=== PATIENT | female | born 1930 | race Caucasian/White ===

== ENCOUNTER 2017-05-13 18:52 | Inpatient (IN) | payer MEDICARE, MEDICAID ==
--- NOTE | 2017-05-13 20:21 | CT ---
CT BRAIN NONCONTRAST: HISTORY: 86-year-old female with altered mental status. FINDINGS: There is no midline shift or any other mass effect. There is no evidence of acute intracranial hemor rhage, large cortical infarct, obstructive hydrocephalus, or extraaxial fluid collection. The calvar ium is intact. There is diffuse parenchymal volume loss. There are low attenuation areas in the whi te matter. These are nonspecific, but in a patient of this age, they are probably chronic ischemic w huyen matter changes due to microvascular atherosclerosis. IMPRESSION: 1) No acute intracranial findings. 2) Involutional changes and severe chronic ischemic white matter changes. mika POS: K[facility]IN
--- NOTE | 2017-05-13 20:40 | RAD ---
RADIOGRAPH CHEST 1 VIEW: HISTORY: 86-year-old female with decreased level of consciousness. FINDINGS: There are no air space densities, pulmonary edema, pneumothorax, or cardiomegaly. The lateral costop hrenic angles are sharp. Atherosclerosis of the thoracic aorta. IMPRESSION: No acute cardiopulmonary findings. Atherosclerosis of the thoracic aorta. mika POS: K[facility]IN
[2017-05-13 20:59] LABS: Hemoglobin 13.3 g/dL (12.0-16.0); Mean Corpuscular HGB CONC 30.4 g/dL (32.0-36.0); Mean Corpuscular Hemoglobin 29.3 pg (27.0-31.0); Mean Corpuscular Volume 96.3 fl (81.0-99.0); Mean Platelet Volume 9.9 fL (7.4-10.4); Platelet Count 249 thou/uL (130-400); RBC Distribution Width 16.6 % (11.5-14.5); Red Blood Cell (RBC) Count 4.56 mill/uL (4.20-5.40); White Blood Cell (WBC) Count 21.8 thou/uL (4.8-10.8)
[2017-05-13 21:12] LABS: Lymphocytes 2 % (21-51); MDiff Complete? YES; Monocytes 5 % (0-10); Neutrophil 93 % (42-75)
[2017-05-13 21:13] LABS: Bilirubin Large (Negative); Blood, Urine Negative (Negative); Clarity CLOUDY (Clear); Glucose, Urine (Dipstick) Negative (Negative); Leukocyte Trace (Negative); Nitrite Negative (Negative); Protein, Urine (Dipstick) 30 mg/dL (Neg-Trace); Specific Gravity, Urine 1.026 (1.002-1.036)
[2017-05-13 21:15] LABS: Bacteria/HPF None Seen HPF (None Seen); RBC/HPF 0-3 HPF (0-3)
[2017-05-13 21:16] LABS: Pathc Cast-AUWi Flag 17.34 (0-2.49)
[2017-05-13 21:22] LABS: ALT (SGPT) 54 U/L (8-55); AST (SGOT) 54 U/L (5-34); Alkaline Phosphatase 66 U/L (40-150); Anion Gap 17 mmol/L (10-20); BUN (Urea Nitrogen) 55 mg/dL (9.8-20.1); Bilirubin, Total 0.7 mg/dL (0.2-1.2); Calc. Creatinine Clearance 0 mL/min (70-130); Carbon Dioxide 23 mmol/L (23-31); Chloride 128 mmol/L (98-107); Estimated GFR-MDRD 23; Globulin 3.8 g/dL (2.4-3.5); Glucose 129 mg/dL (83-110); Potassium 4.6 mmol/L (3.5-5.1); Protein, Total 6.8 g/dL (6.0-8.3); Sodium 163 mmol/L (136-145)
[2017-05-13 21:24] LABS: Crystals/HPF 2+ AMORPH URATES HPF (Negative); Hyaline Casts/LPF 7-10 HYALINE CAST LPF (0-3 Hyaline); Yeast-All Forms None Seen HPF (None Seen)
[2017-05-13 21:30] LABS: Troponin I 0.092 ng/mL (< 0.028)
[2017-05-13 21:31] LABS: CKMB 8.6 ng/mL (0-6.6)
[2017-05-13] MEDS ORDERED: cefTRIAXone\\ROCEPHIN 2 GM in Sodium Chloride 0.9% 100 ML IVPB SCH (22:15)
[2017-05-14 00:40] LABS: Troponin I 0.103 ng/mL (< 0.028)
[2017-05-14] MEDS ORDERED: Sodium Chloride 0.9% 1,000 ML IV SCH (01:03)
[2017-05-14] MEDS ORDERED: Ondansetron HCl/PF 4 MG/2 ML Vial IVP PRN ×2 (01:03→08:35)
[2017-05-14] MEDS ORDERED: Acetaminophen 325 MG TAB PO PRN (01:03)
[2017-05-14] MEDS ORDERED: Ondansetron ODT 4 MG TAB SL PRN (01:03)
[2017-05-14 01:07] LABS: Lactic Acid 2.1 mmol/L (0.5-2.2)
[2017-05-14 03:38] LABS: Troponin I 0.111 ng/mL (< 0.028)
[2017-05-14] MEDS ORDERED: Ondansetron ODT 4 MG TAB PO PRN (08:35)
[2017-05-14] MEDS ORDERED: hydrALAZINE 20 MG/ML VIAL SLOW IVP PRN (08:35)
[2017-05-14] MEDS ORDERED: cloNIDine 0.1 MG TAB PO PRN (08:35)
[2017-05-14] MEDS ORDERED: Acetaminophen 500 MG TAB PO PRN (08:35)
[2017-05-14] MEDS ORDERED: Non-Formulary Item 1 EACH (Memantine Hcl [Namenda Xr] 28 MG) PO SCH (09:00)
[2017-05-14] MEDS ORDERED: FLU VACC TS2017-18 (>65YR) 0.5 ML SYRINGE IM ONE (09:00)
[2017-05-14] MEDS ORDERED: Vancomycin HCl 0.75 GM in Sodium Chloride 0.9% 250 ML 250 ML IVPB SCH (09:00)
[2017-05-14] MEDS ORDERED: Prevnar 13-Val Conj/PF 0.5 ML SYRINGE IM ONE (09:00)
[2017-05-14] MEDS: Donepezil HCl 10 MG TAB PO SCH (09:04)
[2017-05-14] MEDS: Levothyroxine Sodium 75 MCG TAB PO SCH (09:04)
[2017-05-14] MEDS: Famotidine 20 MG TAB PO SCH ×2 (09:04→20:01)
[2017-05-14] MEDS: Sodium Chloride 0.9% 1,000 ML IV SCH (09:04)
[2017-05-14] MEDS ORDERED: Vancomycin HCl 500 MG in Sodium Chloride 0.9% 100 ML IVPB SCH (10:00)
--- NOTE | 2017-05-14 10:39 | HP ---
DATE OF ADMISSION: 05/14/2017 PRIMARY CARE PHYSICIAN: Dr. Kristina Johnston. CHIEF COMPLAINT: Weakness, poor appetite, lethargy. HISTORY OF PRESENT ILLNESS: This is an 86-year-old female who presented to [facility] Emergency Department with approximately 1 week history of increased lethargy, weak ness, poor oral intake and nonverbal status. History is obtained after review of electronic medical record from the emergency room as well as discussions with the patient's daughter who is the patient' s primary care provider and medical power of privacy attorney. The patient apparently lives with her Patricia lopez who assist with her daily care who noted decreased activity level, decreased mary etite, minimally verbal and nonambulatory. The patient is normally ambulatory with use of a rolling walker and is able to feed herself and speak in short sentences with family members. The patient is incontinent of stool and uses an adult diaper. The patient was apparently treated recently for appro ximately 2 weeks with amoxicillin for suspected bronchitis and developed some diarrhea according to t he daughter. The patient denied any complaints of urinary symptoms or difficulty with urination. No other specific change to her medication regimen was mentioned by the daughter. The daughter denied any specific documented fever, unilateral weakness, recent fall, injury or trauma. The daughter juancarlos ed any recent new vaccinations or exposure history or recent travel. In the emergency room, the shayne hter states she attempted to assist her mother with dietary intake with the use of Ensure as well as encouraging increased oral intake of water. In the emergency room, the patient underwent general demi luation including chest imaging showing no acute infiltrates. Screening metabolic survey showed elev ated sodium level to 163 as well as elevated creatinine of 2.06 and lactic acidosis. The patient was also noted with a urinary tract infection and given Rocephin 2 grams x1 dose. The patient also rece ived intravenous fluids and was referred to the Hospitalist Service for admission. PAST MEDICAL HISTORY: 1. Dementia, likely Alzheimer's type. 2. Chronic kidney disease stage 2-3. 3. Hypothyroidism. 4. Dyslipidemia. 5. Osteoarthritis. 6. History of diverticulosis. 7. History of pancreatic cysts. PAST SURGICAL HISTORY: 1. Status post hernia repair. 2. Status post hysterectomy. 3. Status post cataract removal. 4. Status post colonoscopies. 5. Status post dialysis catheter placement with subsequent removal. CURRENT MEDICATIONS: 1. Lovastatin 10 mg 1 tab p.o. daily. 2. Raloxifene 60 mg 1 tab p.o. daily. 3. Levothyroxine 75 mcg 1 tab p.o. daily. 4. Amoxicillin completed 2-week course of antibiotics. 5. Donepezil 10 mg p.o. daily. 6. Namenda XR 28 mg p.o. daily. ALLERGIES: No known drug allergies. FAMILY HISTORY: Positive for coronary artery disease in multiple family members. SOCIAL HISTORY: Patient is . Resides with her daughter in [place], [place]. Ambulates with use of a rolling walker. Incontinent of stools and urine. No current alcohol, tobacco or illicit drug u se. Formerly used tobacco products. Medical power of privacy attorney is Patricia Kelley, patient's daugh ter. REVIEW OF SYSTEMS: Unobtainable as the patient is nonverbal with altered mentation. PHYSICAL EXAMINATION: VITAL SIGNS: On admission, blood pressure 136/76, pulse 101, respiratory rate 22, temperature 97.7 d egrees Fahrenheit, O2 saturation 96% on 2 liters per minute by nasal cannula. GENERAL APPEARANCE: This is an 86-year-old female, nonverbal, opens eyes to name, ill appe aring. HEENT: Pupils are equal, round, and reactive to light and accommodation. Extraocular muscles are in tact. No scleral icterus, no conjunctival injection. Nares patent. OP is clear. Oral mucosa dry. NECK: Supple, no cervical adenopathy, no thyromegaly, no carotid bruits, no JVD appreciated. Cervic al spine with full active and passive range of motion. No meningeal signs appreciated. Scalp is atr aumatic. CHEST: Lungs are clear to auscultation bilaterally. CARDIOVASCULAR: S1, S2, without noted murmur. ABDOMEN: Flat, soft, nontender, nondistended. Bowel sounds are positive in all four quadrants. The re is no hepatosplenomegaly, no abdominal bruits, no rebound or guarding appreciated. EXTREMITIES: Warm and dry with poor turgor. Pulses palpable distally at the dorsalis pedis, posteri or tibial, and popliteal arteries bilaterally. Capillary refill less than 2 seconds. NEUROLOGIC: Nonverbal. Does not follow commands. Opens eyes to name. Does not track with eyes on command. Moves extremities randomly. No unilateral or focal lateralizing signs. The patient not ob served ambulatory during this exam. PERTINENT LABORATORY AND X-RAY FINDINGS: Sodium 163, potassium 4.6, chloride 128, CO2 of 23, anion g ap 17, BUN 55, creatinine 2.06 with estimated GFR of 23, glucose 129, lactic acid level ranged betwee n 2.1-2.9, calcium 9.0, AST 54, ALT of 54, alkaline phosphatase 66, troponin I ranged between 0.092 t o 0.11. Albumin 3.0. [place] [address], hemoglobin 13, hematocrit 44, pl atelet count 249 with 93% neutrophilia. Urinalysis shows specific gravity 1.026, large bilirubin, tr jenifer leukocyte esterase with 11-20 wbc's per high powered field. Portable chest x-ray dated 8 showed no acute cardiopulmonary process. CT of the brain without contrast dated 05/13/2017 showed no acute intracranial process. Severe chronic ischemic white matter changes noted. EKG dated 2017 by my interpretation shows sinus tachycardia with heart rates in the low 100s. Normal R-wave pr ogression noted in the precordial leads. Left axis deviation. ST-T wave flattening in leads V4 thro ugh V6. ASSESSMENT AND PLAN: 1. Sepsis with acute organ dysfunction secondarily with acute organ dysfunction with acute kidney in jury secondary to likely urinary tract infection. The patient will be admitted to the telemetry unit . We will continue IV fluids with normal saline. Continue Rocephin 2 g IV q.24 hours with additiona l vancomycin 750 mg IV q.12 hours. Blood and urine cultures pending. We will continue general sepsis protocol and monitor clinical response. Initial serial lactate 2.9 down to 2.1, on repeat. 2. Acute kidney injury on chronic kidney disease stage 3. We will continue intravenous fluids as ou tlined previously. Avoid nephrotoxic agents and contrast media. Repeat creatinine and monitor trend . 3. Hypernatremia/hyperchloremia. Suspect secondarily to severe dehydration. We will continue IV fl uids as outlined previously. Continue serial sodium monitoring. 4. Severe dehydration. See above. Continue IV normal saline and encourage increased free water int danitza orally. 5. Elevated troponin I. Suspect demand ischemia in the context of current sepsis. Continue support arben management as outlined previously in #1. 6. Acute metabolic encephalopathy. Suspect secondarily to #1. Initial CT imaging of the brain unre markable. We will continue metabolic support with treatment as outlined previously. 7. Hypothyroidism. Continue levothyroxine 75 mcg p.o. daily. Check TSH level in the a.m. 8. Dementia, likely Alzheimer's type. We will continue supportive management. Baseline dementia co nfirmed by family members. 9. Prophylaxis. Sequential compression devices while in bed. Pepcid 20 mg p.o. b.i.d. Update infl uenza and pneumonia vaccinations. PT, OT evaluation in the a.m. 10. Code status is FULL. Surrogate medical decision maker is the patient's daughter who is medical power of privacy attorney, Patricia Kelley.
[2017-05-14] MEDS: cefTRIAXone\\ROCEPHIN 2 GM in Sodium Chloride 0.9% 100 ML IVPB SCH (20:25)
[2017-05-15 05:54] LABS: ALT (SGPT) 33 U/L (8-55); AST (SGOT) 26 U/L (5-34); Albumin 2.6 g/dL (3.4-4.8); Alkaline Phosphatase 52 U/L (40-150); Anion Gap 8 mmol/L (10-20); BUN (Urea Nitrogen) 32 mg/dL (9.8-20.1); Bilirubin, Total 0.4 mg/dL (0.2-1.2); Calc. Creatinine Clearance 28 mL/min (70-130); Calcium 8.4 mg/dL (7.8-10.44); Carbon Dioxide 27 mmol/L (23-31); Chloride 132 mmol/L (98-107); Estimated GFR-MDRD 57; Globulin 2.9 g/dL (2.4-3.5); Glucose 73 mg/dL (83-110); Potassium 3.2 mmol/L (3.5-5.1); Protein, Total 5.5 g/dL (6.0-8.3); Sodium 164 mmol/L (136-145)
[2017-05-15 05:58] LABS: Band 5 % (5-11); Eosinophils 1 % (0-10); Lymphocytes 10 % (21-51); MDiff Complete? YES; Mean Corpuscular HGB CONC 30.3 g/dL (32.0-36.0); Mean Corpuscular Hemoglobin 28.6 pg (27.0-31.0); Mean Corpuscular Volume 94.5 fl (81.0-99.0); Mean Platelet Volume 9.7 fL (7.4-10.4); Monocytes 6 % (0-10); Neutrophil 78 % (42-75); Platelet Count 190 thou/uL (130-400); RBC Distribution Width 16.4 % (11.5-14.5); Red Blood Cell (RBC) Count 3.84 mill/uL (4.20-5.40); White Blood Cell (WBC) Count 12.4 thou/uL (4.8-10.8)
[2017-05-15] MEDS ORDERED: Sodium Chloride 0.45% 1,000 ML IV SCH (06:45)
[2017-05-15] MEDS: POTASSIUM ACETATE IV SCH ×6 (09:10→09:55)
[2017-05-15] MEDS: WATER IV SCH ×6 (09:10→09:55)
[2017-05-15] MEDS: ADMIXTURE FEE IV SCH ×6 (09:10→09:55)
[2017-05-15] MEDS: DEXTROSE IV SCH ×6 (09:10→09:55)
[2017-05-15] MEDS: Famotidine 20 MG TAB PO SCH (10:27)
[2017-05-15] MEDS: Donepezil HCl 10 MG TAB PO SCH (10:27)
[2017-05-15] MEDS: Levothyroxine Sodium 75 MCG TAB PO SCH (10:28)
--- NOTE | 2017-05-15 12:04 | PDOC.PN ---
- Subjective Encounter Start Date: 05/15/17 Encounter Start Time: 12:00 Subjective: f/u for sepsis with acute organ dysfuntion including MONALISA and encephalopathy -: Tx with Vancomycin and Rocephin. Afebrile, remains lethargic. Receiving -: D5W with KCL IV. NPO recommended per speech therapy - Objective Resuscitation Status: Resuscitation Status FULL:Full Resuscitation MAR Reviewed: Yes Vital Signs & Weight: Vital Signs (12 hours) Temp Pulse Resp BP BP Pulse Ox 05/15/17 08:55 97.7 F 81 18 146/62 H 100 05/15/17 04:10 97.7 F 78 18 130/60 95 05/15/17 00:05 97.8 F 83 18 170/80 H 96 Weight Admit Weight 93 lb 4.8 oz Weight 89 lb 6.4 oz I&O: 05/14/17 05/15/17 05/16/17 06:59 06:59 06:59 Intake Total 274 1810 Balance 274 1810 Result Diagrams: 05/15/17 05:22 05/15/17 05:22 Additional Labs: Microbiology 05/13/17 21:57 Venous blood - Right Arm Blood Culture - Preliminary Specimen has been received and culture in progress. No Growth to date. 05/13/17 20:40 Venous blood - Right Arm Blood Culture - Preliminary Specimen has been received and culture in progress. No Growth to date. Laboratory Tests 05/13/17 05/13/17 05/15/17 20:43 20:43 05:22 WBC 21.8 H Hgb 13.3 Neutrophils % (Manual) 93 H Sodium 163 H* Potassium 4.6 Chloride 128 H* 132 H* Creatinine 2.06 H AST 54 H 26 ALT 54 33 TSH 3rd Generation 05/15/17 05/15/17 05:22 05:22 WBC Hgb Neutrophils % (Manual) 78 H Sodium Potassium Chloride Creatinine AST ALT TSH 3rd Generation 2.3240 EKG Reviewed by me: Yes (Tele - SR in 70's) Phys Exam - Physical Examination opens eyes to name, nods to questions briefly, ill-appearing HEENT: oral pharynx no lesions Neck: no JVD, supple Respiratory: no wheezing, clear to auscultation bilateral Cardiovascular: RRR Gastrointestinal: soft, non-tender, no distention, positive bowel sounds Musculoskeletal: no edema, pulses present Alert, opens eyes to name, nods briefly, mumbles Neurological: moves all 4 limbs Deviation from normal: poor turgor Skin: cap refill <2 seconds Dx/Plan (1) Sepsis with acute organ dysfunction Code(s): A41.9 - SEPSIS, UNSPECIFIED ORGANISM; R65.20 - SEVERE SEPSIS WITHOUT SEPTIC SHOCK Status: Acute Comment: Suspected UTI source, continue Rocephin and Vancomycin, continue supportive mgmt, IVF's (2) MONALISA (acute kidney injury) Code(s): N17.9 - ACUTE KIDNEY FAILURE, UNSPECIFIED Status: Acute Comment: Improved with IVF's, avoid nephrotoxic meds and limit contrast exposure (3) Acute hypernatremia Code(s): E87.0 - HYPEROSMOLALITY AND HYPERNATREMIA Status: Acute Comment: Persistent, D5W with KCL IVF, serial Na+ monitoring (4) Encephalopathy, metabolic Code(s): G93.41 - METABOLIC ENCEPHALOPATHY Status: Acute Comment: Persistent likely due to hypernatremia and sepsis, supportive mgmt, serial assessments, CT brain negative (5) Elevated troponin I level Code(s): R74.8 - ABNORMAL LEVELS OF OTHER SERUM ENZYMES Status: Acute Comment: Likely due to demand ischemia in context of sepsis, no ACS (6) CKD (chronic kidney disease) stage 3, GFR 30-59 ml/min Status: Chronic (7) Dehydration Code(s): E86.0 - DEHYDRATION Status: Acute Comment: Improved, continue IVF' s and monitor response (8) Dementia Code(s): F03.90 - UNSPECIFIED DEMENTIA WITHOUT BEHAVIORAL DISTURBANCE Status: Suspected Comment: Supportive mgmt as outlined above, reassess mental status after acute infectious process resolved - Plan plan discussed w/ family, continue antibiotics, PT/OT, social services assistant, speech therapy, DVT proph w/SCDs Continue aggressive supportive measures -: D5W with KCL IV at 75ml/h -: Continue Rocephin and Vancomycin pending final Ucx results -: NPO per [facility], reassess with mental status improved -: Updated family of clinical progress * Check BMP now * AM lab: CMP, CBC
[2017-05-15 13:47] LABS: Anion Gap 14 mmol/L (10-20); BUN (Urea Nitrogen) 29 mg/dL (9.8-20.1); Calc. Creatinine Clearance 29 mL/min (70-130); Calcium 8.2 mg/dL (7.8-10.44); Carbon Dioxide 23 mmol/L (23-31); Chloride 128 mmol/L (98-107); Estimated GFR-MDRD 59; Glucose 80 mg/dL (83-110); Potassium 3.4 mmol/L (3.5-5.1); Sodium 162 mmol/L (136-145)
[2017-05-15] MEDS: Vancomycin HCl 500 MG in Sodium Chloride 0.9% 100 ML IVPB SCH (14:18)
[2017-05-15] MEDS: Famotidine 40 MG/4 ML VIAL SLOW IVP SCH (21:51)
[2017-05-15] MEDS: cefTRIAXone\\ROCEPHIN 2 GM in Sodium Chloride 0.9% 100 ML IVPB SCH (21:57)
[2017-05-16] MEDS: WATER IV SCH ×9 (00:32→17:48)
[2017-05-16] MEDS: DEXTROSE IV SCH ×9 (00:32→17:48)
[2017-05-16] MEDS: POTASSIUM ACETATE IV SCH ×9 (00:32→17:48)
[2017-05-16] MEDS: ADMIXTURE FEE IV SCH ×9 (00:32→17:48)
[2017-05-16] MEDS: Sodium Chloride 0.9% 1,000 ML IV SCH (01:27)
[2017-05-16 06:16] LABS: ALT (SGPT) 27 U/L (8-55); AST (SGOT) 24 U/L (5-34); Albumin 2.7 g/dL (3.4-4.8); Alkaline Phosphatase 57 U/L (40-150); Anion Gap 11 mmol/L (10-20); BUN (Urea Nitrogen) 17 mg/dL (9.8-20.1); Bilirubin, Total 0.5 mg/dL (0.2-1.2); Calc. Creatinine Clearance 32 mL/min (70-130); Calcium 8.2 mg/dL (7.8-10.44); Carbon Dioxide 27 mmol/L (23-31); Chloride 120 mmol/L (98-107); Estimated GFR-MDRD 67; Globulin 3.1 g/dL (2.4-3.5); Glucose 117 mg/dL (83-110); Potassium 3.6 mmol/L (3.5-5.1); Protein, Total 5.8 g/dL (6.0-8.3); Sodium 154 mmol/L (136-145)
[2017-05-16 06:21] LABS: Band 3 % (5-11); Eosinophils 2 % (0-10); Hemoglobin 11.7 g/dL (12.0-16.0); Lymphocytes 15 % (21-51); MDiff Complete? YES; Mean Corpuscular HGB CONC 30.7 g/dL (32.0-36.0); Mean Corpuscular Hemoglobin 29.2 pg (27.0-31.0); Mean Corpuscular Volume 95.3 fl (81.0-99.0); Mean Platelet Volume 9.9 fL (7.4-10.4); Monocytes 5 % (0-10); Neutrophil 75 % (42-75); PLT Morphology Comment Appears Adequate; Platelet Count 195 thou/uL (130-400); RBC Distribution Width 16.3 % (11.5-14.5); Red Blood Cell (RBC) Count 3.99 mill/uL (4.20-5.40); White Blood Cell (WBC) Count 9.6 thou/uL (4.8-10.8)
[2017-05-16] MEDS: Levothyroxine Sodium 75 MCG TAB PO SCH (09:27)
[2017-05-16] MEDS: Donepezil HCl 10 MG TAB PO SCH (09:27)
[2017-05-16] MEDS: Famotidine 40 MG/4 ML VIAL SLOW IVP SCH (09:53)
[2017-05-16 12:08] LABS: Vancomycin, Trough 7.9 ug/mL
[2017-05-16] MEDS: Vancomycin HCl 500 MG in Sodium Chloride 0.9% 100 ML IVPB SCH (13:03)
[2017-05-16] MEDS: Vancomycin HCl 750 MG in Sodium Chloride 0.9% 250 ML 250 ML IVPB SCH (13:12)
--- NOTE | 2017-05-16 14:21 | PDOC.PN ---
- Subjective Encounter Start Date: 05/16/17 Encounter Start Time: 14:15 Subjective: f/u for sepsis suspected UTI source on Rocephin and Vancomycin. -: Overall more alert. Continues on IVF's and Na+ level improving. -: No new complaints. - Objective Resuscitation Status: Resuscitation Status FULL:Full Resuscitation MAR Reviewed: Yes Vital Signs & Weight: Vital Signs (12 hours) Temp Pulse Pulse Resp BP BP Pulse Ox 05/16/17 11:42 97.1 F L 75 19 172/79 H 100 05/16/17 11:01 78 131/74 05/16/17 08:25 97.5 F L 79 22 H 98 05/16/17 07:56 97.5 F L 79 22 H 142/80 H 98 05/16/17 03:51 98 F 76 16 169/77 H 97 Weight Admit Weight 93 lb 4.8 oz Weight 88 lb 6.4 oz I&O: 05/15/17 05/16/17 05/17/17 06:59 06:59 06:59 Intake Total 1810 1304 Balance 1810 1304 Result Diagrams: 05/16/17 05:52 05/16/17 05:52 Additional Labs: Microbiology 05/13/17 21:57 Venous blood - Right Arm Blood Culture - Preliminary Specimen has been received and culture in progress. No Growth to date. 05/13/17 21:57 Venous blood - Right Arm Blood Culture - Preliminary NO GROWTH AT 48 HOURS 05/13/17 20:40 Venous blood - Right Arm Blood Culture - Preliminary Specimen has been received and culture in progress. No Growth to date. 05/13/17 20:40 Venous blood - Right Arm Blood Culture - Preliminary NO GROWTH AT 48 HOURS Laboratory Tests 05/13/17 05/13/17 05/15/17 20:43 20:43 05:22 WBC 21.8 H Hgb 13.3 Neutrophils % (Manual) 93 H Sodium 163 H* Potassium 4.6 Chloride 128 H* 132 H* Creatinine 2.06 H AST 54 H 26 ALT 54 33 TSH 3rd Generation Vancomycin Trough 05/15/17 05/15/17 05/15/17 05:22 05:22 13:07 WBC 12.4 H Hgb 11.0 L Neutrophils % (Manual) 78 H Sodium 162 H* Potassium 3.4 L Chloride 128 H* Creatinine AST ALT TSH 3rd Generation 2.3240 Vancomycin Trough 05/16/17 05/16/17 05:52 11:42 WBC Hgb Neutrophils % (Manual) 75 Sodium Potassium Chloride Creatinine AST ALT TSH 3rd Generation Vancomycin Trough 7.9 EKG Reviewed by me: Yes (Tele - SR in 70's) Phys Exam - Physical Examination alert, tracks with eyes, non-verbal dry oral mucosa HEENT: PERRLA, oral pharynx no lesions Neck: no JVD, supple Respiratory: no wheezing, clear to auscultation bilateral Cardiovascular: RRR Gastrointestinal: soft, non-tender, no distention, positive bowel sounds Musculoskeletal: no edema, pulses present Neurological: normal sensation, moves all 4 limbs Deviation from normal: poor turgor Skin: cap refill <2 seconds Dx/Plan (1) Sepsis with acute organ dysfunction Code(s): A41.9 - SEPSIS, UNSPECIFIED ORGANISM; R65.20 - SEVERE SEPSIS WITHOUT SEPTIC SHOCK Status: Acute Comment: Suspected UTI source, Ucx not performed per micro, continue Rocephin and Vancomycin, continue supportive mgmt, IVF's, likely d/c Vancomycin in 24h (2) MONALISA (acute kidney injury) Code(s): N17.9 - ACUTE KIDNEY FAILURE, UNSPECIFIED Status: Acute Comment: Improved with IVF's, avoid nephrotoxic meds and limit contrast exposure (3) Acute hypernatremia Code(s): E87.0 - HYPEROSMOLALITY AND HYPERNATREMIA Status: Acute Comment: Improved, continue D5W with KCL IVF, serial Na+ monitoring (4) Encephalopathy, metabolic Code(s): G93.41 - METABOLIC ENCEPHALOPATHY Status: Acute Comment: Mild improvement, due to hypernatremia and sepsis, supportive mgmt, serial assessments, CT brain negative (5) Elevated troponin I level Code(s): R74.8 - ABNORMAL LEVELS OF OTHER SERUM ENZYMES Status: Acute Comment: Likely due to demand ischemia in context of sepsis, no ACS (6) CKD (chronic kidney disease) stage 3, GFR 30-59 ml/min Status: Chronic (7) Dehydration Code(s): E86.0 - DEHYDRATION Status: Acute Comment: Improved, continue IVF' s and monitor response (8) Dementia Code(s): F03.90 - UNSPECIFIED DEMENTIA WITHOUT BEHAVIORAL DISTURBANCE Status: Suspected Comment: Supportive mgmt as outlined above, reassess mental status after acute infectious process resolved - Plan plan discussed w/ family, continue antibiotics, PT/OT, high school social science teacher, speech therapy, DVT proph w/SCDs Stable currently -: Continue IVF D5W with KCL at 75ml/h -: Continue Rocephin -: Continue Vancomycin another 24h then d/c -: ST for dysphagia and safe swallowing evaluation * AM lab: BMP, CBC, Mg++, PO3 * CM for HH assistance coordination
[2017-05-16] MEDS: cefTRIAXone\\ROCEPHIN 2 GM in Sodium Chloride 0.9% 100 ML IVPB SCH (21:40)
[2017-05-17] MEDS: WATER IV SCH ×6 (05:18→21:38)
[2017-05-17] MEDS: DEXTROSE IV SCH ×6 (05:18→21:38)
[2017-05-17] MEDS: POTASSIUM ACETATE IV SCH ×6 (05:18→21:38)
[2017-05-17] MEDS: ADMIXTURE FEE IV SCH ×6 (05:18→21:38)
[2017-05-17 06:01] LABS: Anion Gap 9 mmol/L (10-20); BUN (Urea Nitrogen) 10 mg/dL (9.8-20.1); Calc. Creatinine Clearance 35 mL/min (70-130); Calcium 7.6 mg/dL (7.8-10.44); Carbon Dioxide 25 mmol/L (23-31); Chloride 113 mmol/L (98-107); Estimated GFR-MDRD 76; Glucose 100 mg/dL (83-110); Magnesium 1.7 mg/dL (1.6-2.6); Potassium 4.3 mmol/L (3.5-5.1); Sodium 143 mmol/L (136-145)
[2017-05-17 06:03] LABS: Band 2 % (5-11); Eosinophils 1 % (0-10); Hemoglobin 11.1 g/dL (12.0-16.0); Lymphocytes 29 % (21-51); MDiff Complete? YES; Mean Corpuscular HGB CONC 31.7 g/dL (32.0-36.0); Mean Corpuscular Hemoglobin 29.9 pg (27.0-31.0); Mean Corpuscular Volume 94.5 fl (81.0-99.0); Mean Platelet Volume 10.5 fL (7.4-10.4); Monocytes 6 % (0-10); Neutrophil 62 % (42-75); PLT Morphology Comment Appears Adequate; Platelet Count 164 thou/uL (130-400); RBC Distribution Width 16.4 % (11.5-14.5); Red Blood Cell (RBC) Count 3.71 mill/uL (4.20-5.40); White Blood Cell (WBC) Count 6.6 thou/uL (4.8-10.8)
[2017-05-17 06:10] LABS: Phosphorus 1.8 mg/dL (2.3-4.7)
[2017-05-17] MEDS: Levothyroxine Sodium 75 MCG TAB PO SCH (09:12)
[2017-05-17] MEDS: Donepezil HCl 10 MG TAB PO SCH (09:12)
[2017-05-17] MEDS: Famotidine 40 MG/4 ML VIAL SLOW IVP SCH (09:13)
[2017-05-17] MEDS: Vancomycin HCl 750 MG in Sodium Chloride 0.9% 250 ML 250 ML IVPB SCH (14:28)
--- NOTE | 2017-05-17 14:43 | PDOC.PN ---
- Subjective Encounter Start Date: 05/17/17 Encounter Start Time: 14:40 Subjective: f/u for sepsis due to UTI and no available Ucx. Also with encephalopathy -: and hypernatremia. Remains confused and lethargic and ST not recommending -: safe po intake currently. - Objective Resuscitation Status: Resuscitation Status FULL:Full Resuscitation MAR Reviewed: Yes Vital Signs & Weight: Vital Signs (12 hours) Temp Pulse Resp BP Pulse Ox 05/17/17 08:53 97.5 F L 70 20 158/96 H 98 05/17/17 08:00 97.5 F L 70 20 98 05/17/17 04:00 97.7 F 75 18 147/77 H 97 Weight Admit Weight 93 lb 4.8 oz Weight 89 lb 5 oz I&O: 05/16/17 05/17/17 05/18/17 06:59 06:59 06:59 Intake Total 1304 1745 Balance 1304 1745 Result Diagrams: 05/17/17 04:53 05/17/17 04:53 Additional Labs: Microbiology 05/13/17 21:57 Venous blood - Right Arm Blood Culture - Preliminary Specimen has been received and culture in progress. No Growth to date. 05/13/17 21:57 Venous blood - Right Arm Blood Culture - Preliminary NO GROWTH AT 48 HOURS 05/13/17 20:40 Venous blood - Right Arm Blood Culture - Preliminary Specimen has been received and culture in progress. No Growth to date. 05/13/17 20:40 Venous blood - Right Arm Blood Culture - Preliminary NO GROWTH AT 48 HOURS Laboratory Tests 05/13/17 05/13/17 05/15/17 20:43 20:43 05:22 WBC 21.8 H Hgb 13.3 Neutrophils % (Manual) 93 H Sodium 163 H* Potassium 4.6 Chloride 128 H* 132 H* Creatinine 2.06 H AST 54 H 26 ALT 54 33 TSH 3rd Generation Vancomycin Trough 05/15/17 05/15/17 05/15/17 05:22 05:22 13:07 WBC 12.4 H Hgb 11.0 L Neutrophils % (Manual) 78 H Sodium 162 H* Potassium 3.4 L Chloride 128 H* Creatinine AST ALT TSH 3rd Generation 2.3240 Vancomycin Trough 05/16/17 05/16/17 05:52 11:42 WBC Hgb Neutrophils % (Manual) 75 Sodium Potassium Chloride Creatinine AST ALT TSH 3rd Generation Vancomycin Trough 7.9 Radiology Reviewed by me: Yes Phys Exam - Physical Examination Constitutional: NAD alert, eyes open to name, tracks with eyes intermittently HEENT: PERRLA, oral pharynx no lesions Neck: no JVD, supple Respiratory: no wheezing, clear to auscultation bilateral Cardiovascular: RRR Gastrointestinal: soft, non-tender, no distention, positive bowel sounds generalized atrophy Musculoskeletal: no edema, pulses present aphasic, attempts to mumble words Neurological: moves all 4 limbs Skin: normal turgor, cap refill <2 seconds Dx/Plan (1) Sepsis with acute organ dysfunction Code(s): A41.9 - SEPSIS, UNSPECIFIED ORGANISM; R65.20 - SEVERE SEPSIS WITHOUT SEPTIC SHOCK Status: Acute Comment: Suspected UTI source, Ucx not performed per micro, continue Rocephin and d/c Vancomycin, continue supportive mgmt, IVF' s (2) MONALISA (acute kidney injury) Code(s): N17.9 - ACUTE KIDNEY FAILURE, UNSPECIFIED Status: Acute Comment: Improved with IVF's, avoid nephrotoxic meds and limit contrast exposure (3) Acute hypernatremia Code(s): E87.0 - HYPEROSMOLALITY AND HYPERNATREMIA Status: Acute Comment: Improved, continue D5W with KCL IVF, serial Na+ monitoring, appears to be resolving (4) Encephalopathy, metabolic Code(s): G93.41 - METABOLIC ENCEPHALOPATHY Status: Acute Comment: Mild improvement but persists, due to hypernatremia and sepsis, supportive mgmt, serial assessments, CT brain negative (5) Elevated troponin I level Code(s): R74.8 - ABNORMAL LEVELS OF OTHER SERUM ENZYMES Status: Acute Comment: Likely due to demand ischemia in context of sepsis, no ACS (6) CKD (chronic kidney disease) stage 3, GFR 30-59 ml/min Status: Chronic (7) Dehydration Code(s): E86.0 - DEHYDRATION Status: Acute Comment: Improved, continue IVF' s and monitor response (8) Severe protein-calorie malnutrition Code(s): E43 - UNSPECIFIED SEVERE PROTEIN-CALORIE MALNUTRITION Status: Chronic Comment: Start TF's today, monitor caloric intake, discussed with family who agree to trial of TF's via NGT (9) Dementia Code(s): F03.90 - UNSPECIFIED DEMENTIA WITHOUT BEHAVIORAL DISTURBANCE Status: Suspected Comment: Supportive mgmt as outlined above, reassess mental status after acute infectious process resolved (10) Diarrhea Code(s): R19.7 - DIARRHEA, UNSPECIFIED Status: Acute Comment: Likely abx associated, c. diff toxin pending, continue IVF's, Imodium prn - Plan plan discussed w/ family, continue antibiotics, PT/OT, social work administrator, speech therapy, DVT proph w/SCDs Stable currently -: Place NGT today and start TF's Jevity 1.2 with goal rate 65ml/h -: Continue Rocephin -: D/C Vancomycin -: AM lab: BMP, CBC, PO3 * .
--- NOTE | 2017-05-17 17:16 | RAD ---
ONE VIEW CHEST: 05/17/17 HISTORY: Evaluate NG tube placement. COMPARISON: None. FINDINGS: There is atherosclerosis of the aorta. Suboptimal evaluation of the lung parenchyma due to overpenetr ation. There is a normal cardiac silhouette. Nasogastric tube terminates in the left upper quadrant. No evidence of pneumoperitoneum on supine projection. IMPRESSION: Nasogastric tube in left upper quadrant. POS: [facility]
[2017-05-17] MEDS: cefTRIAXone\\ROCEPHIN 2 GM in Sodium Chloride 0.9% 100 ML IVPB SCH (21:39)
[2017-05-17] MEDS: Loperamide HCl 2 MG CAP PO PRN (22:43)
[2017-05-18 06:34] LABS: Anion Gap 10 mmol/L (10-20); BUN (Urea Nitrogen) 8 mg/dL (9.8-20.1); Calc. Creatinine Clearance 36 mL/min (70-130); Calcium 8.2 mg/dL (7.8-10.44); Carbon Dioxide 29 mmol/L (23-31); Chloride 105 mmol/L (98-107); Estimated GFR-MDRD 77; Glucose 119 mg/dL (83-110); Potassium 4.3 mmol/L (3.5-5.1); Sodium 140 mmol/L (136-145)
[2017-05-18 06:53] LABS: Band 3 % (5-11); Hemoglobin 12.9 g/dL (12.0-16.0); Lymphocytes 18 % (21-51); MDiff Complete? YES; Mean Corpuscular HGB CONC 31.3 g/dL (32.0-36.0); Mean Corpuscular Hemoglobin 29.2 pg (27.0-31.0); Mean Corpuscular Volume 93.2 fl (81.0-99.0); Mean Platelet Volume 10.7 fL (7.4-10.4); Monocytes 5 % (0-10); Neutrophil 73 % (42-75); PLT Morphology Comment Appears Adequate; Platelet Count 188 thou/uL (130-400); RBC Distribution Width 16.4 % (11.5-14.5); RBC Morphology Normal; Reactive Lymphocytes 1 % (0-10); Red Blood Cell (RBC) Count 4.43 mill/uL (4.20-5.40); White Blood Cell (WBC) Count 9.4 thou/uL (4.8-10.8)
[2017-05-18] MEDS: Donepezil HCl 10 MG TAB PO SCH (09:36)
[2017-05-18] MEDS: Levothyroxine Sodium 75 MCG TAB PO SCH (09:36)
[2017-05-18] MEDS: WATER IV SCH ×6 (09:37→18:23)
[2017-05-18] MEDS: POTASSIUM ACETATE IV SCH ×6 (09:37→18:23)
[2017-05-18] MEDS: DEXTROSE IV SCH ×6 (09:37→18:23)
[2017-05-18] MEDS: ADMIXTURE FEE IV SCH ×6 (09:37→18:23)
[2017-05-18] MEDS: Famotidine 40 MG/4 ML VIAL SLOW IVP SCH (09:38)
[2017-05-18] MEDS: Loperamide HCl 2 MG CAP PO PRN ×2 (10:56→20:04)
--- NOTE | 2017-05-18 16:26 | PDOC.PN ---
- Subjective Encounter Start Date: 05/18/17 Encounter Start Time: 16:24 Subjective: pt barely opens eyes w loud verbal & tactile stimuli -: does not communicate or follows commands - Objective Resuscitation Status: Resuscitation Status FULL:Full Resuscitation MAR Reviewed: Yes Vital Signs & Weight: Vital Signs (12 hours) Temp Pulse Resp BP Pulse Ox 05/18/17 15:25 96.8 F L 82 16 119/78 98 05/18/17 11:40 96.1 F L 76 16 147/67 H 99 05/18/17 08:00 98.0 F 82 20 137/95 H 100 Weight Admit Weight 93 lb 4.8 oz Weight 89 lb 7 oz I&O: 05/17/17 05/18/17 05/19/17 06:59 06:59 06:59 Intake Total 1745 1965 130 Balance 1745 1965 130 Result Diagrams: 05/18/17 05:31 05/18/17 05:31 Additional Labs: Microbiology 05/19/15 00:02 Venous blood - Right Arm Blood Culture - Final NO GROWTH IN 5 DAYS 05/17/17 12:59 Stool C. difficile GDH Antigen & Toxins - Final 05/17/17 02:45 Stool Campylobacter Antigen Assay - Final 05/17/17 02:45 Stool Shiga Toxin Test - Final 05/18/15 23:21 Venous blood - Right Arm Blood Culture - Final NO GROWTH IN 5 DAYS 05/18/15 23:12 Urine Straight Catheter Urine Culture - Final NO GROWTH AT 36 HOURS 05/17/17 02:45 Stool Stool Culture - Preliminary 05/13/17 21:57 Venous blood - Right Arm Blood Culture - Preliminary NO GROWTH AT 48 HOURS 05/13/17 20:40 Venous blood - Right Arm Blood Culture - Preliminary NO GROWTH AT 48 HOURS Laboratory Tests 05/13/17 05/13/17 05/15/17 20:43 20:43 05:22 WBC 21.8 H Sodium 163 H* 164 H* Creatinine 2.06 H 0.93 TSH 3rd Generation 05/15/17 05/15/17 05/15/17 05:22 05:22 13:07 WBC 12.4 H Sodium 162 H* Creatinine 0.90 TSH 3rd Generation 2.3240 05/16/17 05/16/17 05/17/17 05:52 05:52 04:53 WBC 9.6 Sodium 154 H 143 Creatinine 0.81 0.73 TSH 3rd Generation 05/17/17 05/18/17 05/18/17 04:53 05:31 05:31 WBC 6.6 9.4 Sodium 140 Creatinine 0.72 TSH 3rd Generation Phys Exam - Physical Examination sleepy,thin,cachectic,brusied HEENT: PERRLA, sclera anicteric, oral pharynx no lesions dry mucosa Neck: no nodes, no JVD, supple, full ROM Respiratory: no wheezing, no rales, no rhonchi, clear to auscultation bilateral Cardiovascular: RRR, no significant murmur Gastrointestinal: soft, non-tender, no distention, positive bowel sounds Musculoskeletal: no edema, pulses present Neurological: moves all 4 limbs Deviation from normal: obtunded almost Skin: no rash Dx/Plan (1) Encephalopathy, metabolic Code(s): G93.41 - METABOLIC ENCEPHALOPATHY Status: Acute Comment: Mild improvement but persists, due to hypernatremia and sepsis, supportive mgmt, serial assessments, CT brain negative (2) MONALISA (acute kidney injury) Code(s): N17.9 - ACUTE KIDNEY FAILURE, UNSPECIFIED Status: Acute Comment: Improved with IVF's, avoid nephrotoxic meds and limit contrast exposure (3) Sepsis with acute organ dysfunction Code(s): A41.9 - SEPSIS, UNSPECIFIED ORGANISM; R65.20 - SEVERE SEPSIS WITHOUT SEPTIC SHOCK Status: Acute Comment: Suspected UTI source, Ucx/Blood Cx negative so far. continue Rocephin and d/c Vancomycin, continue supportive mgmt , IVF's (4) Elevated troponin I level Code(s): R74.8 - ABNORMAL LEVELS OF OTHER SERUM ENZYMES Status: Acute Comment: Likely due to demand ischemia in context of sepsis, no ACS (5) Severe protein-calorie malnutrition Code(s): E43 - UNSPECIFIED SEVERE PROTEIN-CALORIE MALNUTRITION Status: Chronic Comment: Started TF's , monitor caloric intake, (6) Dehydration Code(s): E86.0 - DEHYDRATION Status: Acute Comment: Improved, continue IVF' s and monitor response (7) CKD (chronic kidney disease) stage 3, GFR 30-59 ml/min Status: Chronic (8) Dementia Code(s): F03.90 - UNSPECIFIED DEMENTIA WITHOUT BEHAVIORAL DISTURBANCE Status: Suspected Comment: Supportive mgmt as outlined above, reassess mental status after acute infectious process resolved (9) Acute hypernatremia Code(s): E87.0 - HYPEROSMOLALITY AND HYPERNATREMIA Status: Resolved Comment : Improved, continue D5W with KCL IVF, serial Na+ monitoring, appears to be resolving - Plan burch catheter, continue antibiotics, PT/OT, DVT proph w/SCDs cont empiric ABX.IVF.reduced rate as now on TF. -: no improvement. remains full code but prognosis seems poor -: ill consult PCT for gaols of care & code status -: am labs. supportive care/ -: electrolytes have improved. monitor * . Review of Systems - Review of Systems Other: unobtainable due to encephalopathy/dementia - Medications/Allergies Allergies/Adverse Reactions: Allergies Allergy/AdvReac Type Severity Reaction Status Date / Time No Known Allergies Allergy Verified 05/19/15 02:56 Medications: Current Medications Acetaminophen (Tylenol) 1,000 mg PO Q6H PRN PRN Reason: Headache/Fever or Mild Pain Clonidine (Catapres) 0.1 mg PO Q4H PRN PRN Reason: Systolic BP > 180 Donepezil HCl (Aricept) 10 mg PO DAILY [facility] Last Admin: 05/18/17 09:36 Dose: 10 mg Famotidine (Pepcid) 20 mg SLOW IVP 0900 [facility] Hydralazine HCl (Apresoline) 10 mg SLOW IVP Q4H PRN PRN Reason: Systolic BP > 180 Ceftriaxone Sodium 2 gm/ (Sodium Chloride) 100 mls @ 200 mls/hr IVPB Q24HR [facility] Last Admin: 05/17/17 21:39 Dose: 100 mls Potassium Acetate 40 meq/Miscellaneous Medication 1 each/ Dextrose/Water 1,020 mls @ 50 mls/hr IV .[id number] [facility] Levothyroxine Sodium (Synthroid) 75 mcg PO DAILY [facility] Last Admin: 05/18/17 09:36 Dose: 75 mcg Loperamide HCl (Imodium) 2 mg PO PRN PRN PRN Reason: Diarrhea/Loose Stools Last Admin: 05/18/17 10:56 Dose: 2 mg Memantine (Namenda) 5 mg PO BID [facility] Last Admin: 05/18/17 09:36 Dose: 5 mg Ondansetron HCl (Zofran Odt) 4 mg PO Q6H PRN PRN Reason: Nausea/Vomiting Ondansetron HCl (Zofran) 4 mg IVP Q6H PRN PRN Reason: Nausea/Vomiting Raloxifene HCl (Evista) 60 mg PO DAILY [facility] Last Admin: 05/18/17 09:36 Dose: 60 mg Sodium Chloride (Flush - Normal Saline) 10 ml IVF Q12HR [facility] Last Admin: 05/18/17 09:37 Dose: Not Given Sodium Chloride (Flush - Normal Saline) 10 ml IVF PRN PRN PRN Reason: Saline Flush
[2017-05-18] MEDS: cefTRIAXone\\ROCEPHIN 2 GM in Sodium Chloride 0.9% 100 ML IVPB SCH (20:04)
[2017-05-19] MEDS: DEXTROSE IV SCH ×3 (03:06)
[2017-05-19] MEDS: WATER IV SCH ×3 (03:06)
[2017-05-19] MEDS: POTASSIUM ACETATE IV SCH ×3 (03:06)
[2017-05-19] MEDS: ADMIXTURE FEE IV SCH ×3 (03:06)
[2017-05-19 06:15] LABS: #Eosinphils 0.1 thou/uL (0.0-0.7); #Neutrophils 5.7 thou/uL (1.40-6.50); %Basophils 0.1 % (0.0-1.0); %Eosinophils 1.5 % (0.0-10.0); %Lymphocytes 22.7 % (21.0-51.0); %Monocytes 11.6 % (0.0-10.0); %Neutrophils 64.1 % (42.0-75.0); Hemoglobin 12.1 g/dL (12.0-16.0); Mean Corpuscular Volume 93.9 fl (81.0-99.0); Mean Platelet Volume 10.4 fL (7.4-10.4); Platelet Count 190 thou/uL (130-400); RBC Distribution Width 16.6 % (11.5-14.5); Red Blood Cell (RBC) Count 4.16 mill/uL (4.20-5.40); White Blood Cell (WBC) Count 8.9 thou/uL (4.8-10.8)
[2017-05-19 06:26] LABS: Anion Gap 10 mmol/L (10-20); BUN (Urea Nitrogen) 12 mg/dL (9.8-20.1); Calc. Creatinine Clearance 33 mL/min (70-130); Calcium 7.9 mg/dL (7.8-10.44); Carbon Dioxide 31 mmol/L (23-31); Chloride 104 mmol/L (98-107); Estimated GFR-MDRD 69; Glucose 109 mg/dL (83-110); Potassium 4.9 mmol/L (3.5-5.1); Sodium 140 mmol/L (136-145)
[2017-05-19] MEDS: Levothyroxine Sodium 75 MCG TAB PO SCH (09:21)
[2017-05-19] MEDS: Donepezil HCl 10 MG TAB PO SCH (09:21)
[2017-05-19] MEDS: Famotidine/PF 20 mg/2ml Vial SLOW IVP SCH (09:22)
--- NOTE | 2017-05-19 14:24 | PDOC.PN ---
- Subjective Encounter Start Date: 05/19/17 Encounter Start Time: 14:22 Subjective: no chnages in clinical condition.aminata obtubded -: discussedw eldest daughter at bedside -: they want PEG & then take her home w HH - Objective Resuscitation Status: Resuscitation Status FULL:Full Resuscitation MAR Reviewed: Yes Vital Signs & Weight: Vital Signs (12 hours) Temp Pulse Resp BP Pulse Ox 05/19/17 12:00 97.5 F L 75 18 128/62 99 05/19/17 07:49 97.2 F L 89 19 100 05/19/17 07:43 97.2 F L 89 19 132/55 L 100 05/19/17 04:00 96.7 F L 84 18 124/60 98 Weight Admit Weight 93 lb 4.8 oz Weight 89 lb I&O: 05/18/17 05/19/17 05/20/17 06:59 06:59 06:59 Intake Total 1964 3070 130 Balance 1964 3070 130 Result Diagrams: 05/19/17 05:37 05/19/17 05:37 Additional Labs: Microbiology 05/19/15 00:02 Venous blood - Right Arm Blood Culture - Final NO GROWTH IN 5 DAYS 05/17/17 12:59 Stool C. difficile GDH Antigen & Toxins - Final 05/17/17 02:45 Stool Campylobacter Antigen Assay - Final 05/17/17 02:45 Stool Shiga Toxin Test - Final 05/18/15 23:21 Venous blood - Right Arm Blood Culture - Final NO GROWTH IN 5 DAYS 05/18/15 23:12 Urine Straight Catheter Urine Culture - Final NO GROWTH AT 36 HOURS 05/13/17 21:57 Venous blood - Right Arm Blood Culture - Final NO GROWTH IN 5 DAYS 05/13/17 20:40 Venous blood - Right Arm Blood Culture - Final NO GROWTH IN 5 DAYS 05/17/17 02:45 Stool Stool Culture - Preliminary Laboratory Tests 05/13/17 05/15/17 05/15/17 20:43 05:22 13:07 Sodium 163 H* 164 H* 162 H* 05/16/17 05/17/17 05/18/17 05:52 04:53 05:31 Sodium 154 H 143 140 05/19/17 05:37 Sodium 140 Phys Exam - Physical Examination Constitutional: NAD HEENT: PERRLA, moist MMs, sclera anicteric, oral pharynx no lesions Neck: no nodes, no JVD, supple, full ROM Respiratory: no wheezing, no rales, no rhonchi, clear to auscultation bilateral Cardiovascular: RRR, no significant murmur Gastrointestinal: soft, no distention, positive bowel sounds Musculoskeletal: no edema, pulses present opens eyes for loud verbal stimuli,not following commands Deviation from normal: encephalopathic Dx/Plan (1) Encephalopathy, metabolic Code(s): G93.41 - METABOLIC ENCEPHALOPATHY Status: Acute Comment: Mild improvement but persists, due to hypernatremia and sepsis, supportive mgmt, serial assessments, CT brain negative (2) MONALISA (acute kidney injury) Code(s): N17.9 - ACUTE KIDNEY FAILURE, UNSPECIFIED Status: Acute Comment: Improved with IVF's, avoid nephrotoxic meds and limit contrast exposure (3) Sepsis with acute organ dysfunction Code(s): A41.9 - SEPSIS, UNSPECIFIED ORGANISM; R65.20 - SEVERE SEPSIS WITHOUT SEPTIC SHOCK Status: Acute Comment: Suspected UTI source, Ucx/Blood Cx negative so far. continue Rocephin and d/c Vancomycin, continue supportive mgmt , IVF's (4) Elevated troponin I level Code(s): R74.8 - ABNORMAL LEVELS OF OTHER SERUM ENZYMES Status: Acute Comment: Likely due to demand ischemia in context of sepsis, no ACS (5) Severe protein-calorie malnutrition Code(s): E43 - UNSPECIFIED SEVERE PROTEIN-CALORIE MALNUTRITION Status: Chronic Comment: Started TF's , monitor caloric intake, (6) Dehydration Code(s): E86.0 - DEHYDRATION Status: Acute Comment: Improved, continue IVF' s and monitor response (7) CKD (chronic kidney disease) stage 3, GFR 30-59 ml/min Status: Chronic (8) Dementia Code(s): F03.90 - UNSPECIFIED DEMENTIA WITHOUT BEHAVIORAL DISTURBANCE Status: Suspected Comment: Supportive mgmt as outlined above, reassess mental status after acute infectious process resolved (9) Acute hypernatremia Code(s): E87.0 - HYPEROSMOLALITY AND HYPERNATREMIA Status: Resolved Comment : Improved, continue D5W with KCL IVF, serial Na+ monitoring, appears to be resolving - Plan plan discussed w/ family, PT/OT, case management social worker, out of bed/ambulate, DVT proph w/SCDs Pt anjum at end of life.all labs,Cx,VS WNL.no clear abnormality -: family wants PEG tube to keep up with feedings at home & for meds -: will consult GI. -: Pallaitive team to address Code status/goals of care -: jane valero DC home w HH once PEG done & tolerates TF * . Review of Systems - Review of Systems Other: unobtainable due to dementia/delirium - Medications/Allergies Allergies/Adverse Reactions: Allergies Allergy/AdvReac Type Severity Reaction Status Date / Time No Known Allergies Allergy Verified 05/19/15 02:56 Medications: Current Medications Acetaminophen (Tylenol) 1,000 mg PO Q6H PRN PRN Reason: Headache/Fever or Mild Pain Clonidine (Catapres) 0.1 mg PO Q4H PRN PRN Reason: Systolic BP > 180 Donepezil HCl (Aricept) 10 mg PO DAILY [facility] Last Admin: 05/19/17 09:21 Dose: 10 mg Famotidine (Pepcid) 20 mg SLOW IVP 0900 [facility] Last Admin: 05/19/17 09:22 Dose: 20 mg Hydralazine HCl (Apresoline) 10 mg SLOW IVP Q4H PRN PRN Reason: Systolic BP > 180 Ceftriaxone Sodium 2 gm/ (Sodium Chloride) 100 mls @ 200 mls/hr IVPB Q24HR [facility] Last Admin: 05/18/17 20:04 Dose: 100 mls Potassium Acetate 40 meq/Miscellaneous Medication 1 each/ Dextrose/Water 1,020 mls @ 50 mls/hr IV .[id number] [facility] Last Admin: 05/19/17 03:06 Dose: 1,020 mls Levothyroxine Sodium (Synthroid) 75 mcg PO DAILY [facility] Last Admin: 05/19/17 09:21 Dose: 75 mcg Loperamide HCl (Imodium) 2 mg PO PRN PRN PRN Reason: Diarrhea/Loose Stools Last Admin: 05/18/17 20:04 Dose: 2 mg Memantine (Namenda) 5 mg PO BID [facility] Last Admin: 05/19/17 09:21 Dose: 5 mg Ondansetron HCl (Zofran Odt) 4 mg PO Q6H PRN PRN Reason: Nausea/Vomiting Ondansetron HCl (Zofran) 4 mg IVP Q6H PRN PRN Reason: Nausea/Vomiting Raloxifene HCl (Evista) 60 mg PO DAILY [facility] Last Admin: 05/19/17 09:21 Dose: 60 mg Sodium Chloride (Flush - Normal Saline) 10 ml IVF Q12HR [facility] Last Admin: 05/19/17 09:22 Dose: Not Given Sodium Chloride (Flush - Normal Saline) 10 ml IVF PRN PRN PRN Reason: Saline Flush
[2017-05-19] MEDS: Loperamide HCl 2 MG CAP PO PRN ×2 (15:17→20:45)
--- NOTE | 2017-05-19 20:02 | CON ---
DATE OF CONSULTATION: 05/19/2017 REASON FOR CONSULTATION: Dysphagia and malnutrition. CONSULTING PHYSICIAN: Dr. Elba Lomeli. HISTORY OF PRESENT ILLNESS: The patient is an 86-year-old female with past medical history of advanced dementia of the Alzheimer's type, chronic kidney disease stage 3, hypothyroidism, hyperlipidemia, osteoarthritis, diverticulosis and pancreatic cysts, who initially presented with increased lethargy, weakness , and poor oral intake and worsening of her mental status. During the course of this hospitalization, she has exhibited decreased interaction both verbal and physically with family and nursing staff and has essentially become nonverbal. Speech Pathology evaluated the patient and who was unable to follow simple instructions making her at high risk for aspiration as well as malnutrition due to poor oral intake, at which point, GI was consulted for possible PEG tube placement. Currently, the patient is obtunded and unable to respond to verbal stimuli, but does respond to noxious stimuli. The remainder of the information was obtained by the patient's granddaughter, who was at bedside and who also states that she is the medical power of estate attorney. At this point, the patient's granddaughter states that approximately 3 weeks ago, she was alert, she was active and performing ADLs to inadequate degree with significant decline over this time. Now to the point where she is unable to care for herself with the family hoping to have the placement of a feeding tube and discharged to home health once performed. REVIEW OF SYSTEMS: Could not be obtained due to the patient's obtunded status. PAST MEDICAL HISTORY: As per HPI. PAST SURGICAL HISTORY: Hernia repair, hysterectomy, cataract removal, dialysis catheter placement and removal. FAMILY HISTORY: Coronary artery disease in multiple family members. Denies any GI malignancies. SOCIAL HISTORY: Denies any tobacco, alcohol or illicit drug use. OUTPATIENT MEDICATIONS: Reviewed. ALLERGIES: No known drug allergies. PHYSICAL EXAMINATION: VITAL SIGNS: Temperature of 97.9, pulse 84, blood pressure 114/60, respiratory rate 18, satting 100% on room air. GENERAL: The patient is lying comfortably in bed, in no distress. The patient is not alert or interactive with the interviewer with sensorium unable to be determined. NECK: Supple. No JVD noted. CARDIOVASCULAR: Regular rate and rhythm with no discernible murmurs, gallops or rubs. RESPIRATORY: Clear to auscultation bilaterally with no discernible wheezes or rales. ABDOMEN: Normoactive bowel sounds, soft, nontender, nondistended. EXTREMITIES: No cyanosis, clubbing or edema. LABORATORY DATA: CBC with white blood cell count of 8.9, hemoglobin 12.1, hematocrit 39, platelets 190. Chemistry with a sodium of 140, potassium 4.9, chloride 104, CO2 31, BUN 12, creatinine 0.79, glucose 109, AST 24, ALT 27, alkaline phosphatase 57, total bilirubin 0.5, albumin 2.7. Stool studies were negative for C. diff, but stool culture was positive for Pseudomonas species with further speciation and sensitivities pending. Blood culture was negative x2. IMAGING DATA: Abdominal x-ray obtained on 05/17/2017 showed no evidence of pneumoperitoneum on supine projection and nasogastric tube in the left upper quadrant in appropriate position. ASSESSMENT AND PLAN: The patient is an 86-year-old female with past medical history of advanced dementia of the Alzheimer's type, chronic kidney disease stage 3, hypothyroidism, hyperlipidemia, osteoarthritis, diverticulosis, pancreatic cyst, presenting with worsening mental status/obtundation and malnutrition. Malnutrition/dysphagia: The patient is presenting with fairly sudden decline over the last 3 weeks with her mental status. Originally with very active lifestyle now, she has now worsened to the point where she is unable to interact with the interviewer or family members. She is completely aphasic at the current point in time with no meaningful responses upon questioning. Speech Pathology evaluation noted the patient did not follow instructions or commands adequately to maintain good swallow and there is a high concern that the patient will be unable to maintain an adequate nutrition with solely oral intake. The benefits of PEG tube placement in advanced dementia patients are controversial with recent studies showing no significant improvement in functional status and adequate nutrition and does not decrease mortality associated with this particular condition as well. However, per the patient's medical power of estate attorney, the PEG tube placement would be in line with the patient's wishes, so we will proceed with PEG tube tomorrow. RECOMMENDATIONS: 1. Please make patient n.p.o. at midnight with discontinuation of tube feeds in preparation for EGD with PEG tube placement tomorrow morning. 2, Please hold morning dose of any anticoagulation in preparation for the procedure. 3. Antibiotics to be administered roughly 30 minutes prior to PEG tube placement tomorrow in the endoscopy suite. We will continue to follow. Please call with any questions. MTDD
[2017-05-19] MEDS: cefTRIAXone\\ROCEPHIN 2 GM in Sodium Chloride 0.9% 100 ML IVPB SCH (20:45)
[2017-05-20] MEDS ORDERED: CEFAZOLIN/Water 2 GM/20 ML SYRINGE SLOW IVP SCH (03:30)
[2017-05-20] MEDS: Levothyroxine Sodium 75 MCG TAB PO SCH (08:48)
[2017-05-20] MEDS: Donepezil HCl 10 MG TAB PO SCH (08:48)
[2017-05-20] MEDS ORDERED: CEFAZOLIN/Water 2 GM/20 ML SYRINGE ONE (09:36)
[2017-05-20] MEDS ORDERED: Diprivan 20 ML ONE (10:14)
[2017-05-20] MEDS ORDERED: Promethazine HCl 25 MG/ML VIAL IM PRN (11:01)
[2017-05-20] MEDS ORDERED: Ondansetron HCl/PF 4 MG/2 ML Vial IVP PRN (11:01)
[2017-05-20] MEDS ORDERED: Promethazine HCl 25 MG/ML VIAL SLOW IVP PRN (11:01)
--- NOTE | 2017-05-20 11:26 | OP ---
DATE OF PROCEDURE: 05/20/2017 PROCEDURE: Esophagogastroduodenoscopy with PEG tube placement. INDICATION FOR PROCEDURE: Dysphagia and malnutrition. DESCRIPTION OF PROCEDURE: After the risks and benefits of the procedure were explained to the patien t's medical power of compliance attorney/surrogate including risks of bleeding, infection, perforation, reaction s to anesthesia and/or pain, informed consent was obtained. The patient was then taken to the endosc opy suite where deep sedation via propofol and anesthesia support was administered. The standard gas troscope was then introduced into the mouth with intubation of the esophagus, stomach and proximal sm all intestine with the findings listed below. Then, using sterile technique, the PEG tube was placed using a push method with the description of that particular portion of the procedure below. The pat ient tolerated the procedure well with no immediate perioperative complications. Two grams of cefazo jose was administered approximately 5-10 minutes prior to the procedure as a part of antibiotic prophy laxis. FINDINGS: ESOPHAGUS: Normal appearing mucosa was seen in the proximal, mid and distal esophagus. There was no evidence of erosions, ulcerations, or mass lesions. STOMACH: Normal appearing mucosa was seen in the gastric cardia, fundus, body, antrum and incisura. There was no evidence of erosions, ulcerations, or mass lesions. SMALL BOWEL: Normal appearing mucosa was seen in both the duodenal bulb and second portion of the du odenum. A large duodenal diverticula was seen in the second portion of the duodenum with a large josé miguel unt of retained food. Otherwise, there were no erosions, ulcerations, or mass lesions seen during th is portion of the exam. DESCRIPTION OF PROCEDURE: Then, using sterile technique, the PEG tube portion of the procedure was p erformed using both transillumination and 1:1 compression. The site for PEG tube placement was confi rmed. There was approximately 2 cm away from the xiphoid process as well as the left ribs in the lef t upper abdominal quadrant. Using an infiltration needle, a small amount of 2% lidocaine was instill ed in a wheal formation. After this was actually completed, the needle was then placed perpendicular to the skin and advanced using back pressure into the stomach as the needle was withdrawn. Instilla tion of 2% lidocaine was administered along the tract made then using a small scalpel, a small incisi on in the skin was made at the site of instillation of local anesthesia. A 1 cm incision was made in a vertical orientation with only minimal amount of bleeding seen with this incision. Then, using an aspiration needle, the needle was then advanced into the stomach without difficulty. The needle was then removed from the catheter and a guidewire was then placed into the stomach and using a snare, t he guidewire was then brought back through the esophagus out through the mouth. A [employer] PEG tube was then attached to the guidewire and using a method, advanced into the stomach a nd out through the anterior gastric wall and abdominal wall at the incision site performed earlier. The tube was then affixed with the bumper and cut to length with an abdominal binder placed around th e patient to prevent inadvertent pulling or removal of the PEG tube. Repeat intubation of the esopha rosalba and stomach was then performed to confirm placement of the PEG tube with placement confirmed and able to rotate the PEG tube approximately 720 degrees successfully without problems. At that point, all equipment was removed and the procedure was terminated. IMPRESSION: 1. Normal upper endoscopy prior to PEG tube placement. 2. Successful placement of a [employer] PEG tube. RECOMMENDATIONS: 1. Follow with primary inpatient team. 2. We would follow standard PEG tube care and precautions being careful to avoid the placement of an y dressings between the external bumper and the skin that can create pressure to the anterior wall of the stomach and ulceration. 3. Please rotate the PEG tube to 720 degrees daily to prevent secretion formation and adherence of t he PEG tube to the abdominal wall. 4. Would refrain from any swimming or baths for the next 6-8 weeks while the tract matures. 5. If the PEG tube is prematurely removed prior to 6-8 weeks, would consult General Surgery and silvano acuna order a stat CT of the abdomen and pelvis as this is considered a gastric perforation and considere d as surgical emergency. 6. Would instill approximately 60 mL of water prior to and after any tube feeds to prevent the forma tion of tube feeds adhering to the lining of the PEG tube and premature malfunction. Would hold any tube feeds for approximately 6 hours after placement of this PEG tube and if no complications are not ed within that time, can start PEG tube per dietitian protocol. We will continue to follow. Please call with any questions.
--- NOTE | 2017-05-20 15:39 | PDOC.PN ---
- Subjective Encounter Start Date: 05/20/17 Encounter Start Time: 15:39 - Objective Resuscitation Status: Resuscitation Status FULL:Full Resuscitation MAR Reviewed: Yes Vital Signs & Weight: Vital Signs (12 hours) Temp Pulse Resp BP BP Pulse Ox 05/20/17 08:00 97.7 F 83 16 149/69 H 98 05/20/17 04:45 97.5 F L 83 16 121/58 L 98 Weight Admit Weight 93 lb 4.8 oz Weight 89 lb 9.6 oz I&O: 05/19/17 05/20/17 05/21/17 06:59 06:59 06:59 Intake Total 3070 2456 Balance 3070 2456 Result Diagrams: 05/19/17 05:37 05/19/17 05:37 Additional Labs: Microbiology 05/17/17 12:59 Stool C. difficile GDH Antigen & Toxins - Final 05/17/17 02:45 Stool Campylobacter Antigen Assay - Final 05/17/17 02:45 Stool Shiga Toxin Test - Final 05/13/17 21:57 Venous blood - Right Arm Blood Culture - Final NO GROWTH IN 5 DAYS 05/13/17 20:40 Venous blood - Right Arm Blood Culture - Final NO GROWTH IN 5 DAYS 05/17/17 02:45 Stool Stool Culture - Preliminary Dx/Plan (1) Encephalopathy, metabolic Code(s): G93.41 - METABOLIC ENCEPHALOPATHY Status: Acute Comment: Mild improvement but persists, due to hypernatremia and sepsis, supportive mgmt, serial assessments, CT brain negative (2) MONALISA (acute kidney injury) Code(s): N17.9 - ACUTE KIDNEY FAILURE, UNSPECIFIED Status: Acute Comment: Improved with IVF's, avoid nephrotoxic meds and limit contrast exposure (3) Sepsis with acute organ dysfunction Code(s): A41.9 - SEPSIS, UNSPECIFIED ORGANISM; R65.20 - SEVERE SEPSIS WITHOUT SEPTIC SHOCK Status: Acute Comment: Suspected UTI source, Ucx/Blood Cx negative so far. continue Rocephin and d/c Vancomycin, continue supportive mgmt , IVF's (4) Elevated troponin I level Code(s): R74.8 - ABNORMAL LEVELS OF OTHER SERUM ENZYMES Status: Acute Comment: Likely due to demand ischemia in context of sepsis, no ACS (5) Severe protein-calorie malnutrition Code(s): E43 - UNSPECIFIED SEVERE PROTEIN-CALORIE MALNUTRITION Status: Chronic Comment: Started TF's , monitor caloric intake, (6) Dehydration Code(s): E86.0 - DEHYDRATION Status: Acute Comment: Improved, continue IVF' s and monitor response (7) CKD (chronic kidney disease) stage 3, GFR 30-59 ml/min Status: Chronic (8) Dementia Code(s): F03.90 - UNSPECIFIED DEMENTIA WITHOUT BEHAVIORAL DISTURBANCE Status: Suspected Comment: Supportive mgmt as outlined above, reassess mental status after acute infectious process resolved (9) Acute hypernatremia Code(s): E87.0 - HYPEROSMOLALITY AND HYPERNATREMIA Status: Resolved Comment : Improved, continue D5W with KCL IVF, serial Na+ monitoring, appears to be resolving - Plan * .
[2017-05-20] MEDS ORDERED: PHENYLEPHRINE-NS 100 MCG/ML 10 ML SYRINGE ONE (15:42)
[2017-05-20] MEDS ORDERED: Propofol 200 MG/20 ML VIAL ONE (15:42)
[2017-05-20] MEDS: Lidocaine 5% Patch TD SCH (18:11)
[2017-05-20] MEDS: Famotidine/PF 20 mg/2ml Vial SLOW IVP SCH (18:17)
[2017-05-20] MEDS: WATER IV SCH ×6 (21:05→22:05)
[2017-05-20] MEDS: DEXTROSE IV SCH ×6 (21:05→22:05)
[2017-05-20] MEDS: POTASSIUM ACETATE IV SCH ×6 (21:05→22:05)
[2017-05-20] MEDS: ADMIXTURE FEE IV SCH ×6 (21:05→22:05)
[2017-05-20] MEDS: cefTRIAXone\\ROCEPHIN 2 GM in Sodium Chloride 0.9% 100 ML IVPB SCH (21:06)
[2017-05-21 05:28] LABS: #Eosinphils 0.1 thou/uL (0.0-0.7); #Lymphocytes 1.6 thou/uL (1.20-3.40); #Monocytes 1.6 thou/uL (0.11-0.59); #Neutrophils 13.2 thou/uL (1.40-6.50); %Basophils 0.2 % (0.0-1.0); %Eosinophils 0.5 % (0.0-10.0); %Lymphocytes 9.6 % (21.0-51.0); %Monocytes 9.6 % (0.0-10.0); %Neutrophils 80.1 % (42.0-75.0); Hemoglobin 12.2 g/dL (12.0-16.0); Mean Corpuscular HGB CONC 31.1 g/dL (32.0-36.0); Mean Corpuscular Hemoglobin 28.3 pg (27.0-31.0); Mean Platelet Volume 10.5 fL (7.4-10.4); Platelet Count 249 thou/uL (130-400); RBC Distribution Width 16.9 % (11.5-14.5); Red Blood Cell (RBC) Count 4.32 mill/uL (4.20-5.40); White Blood Cell (WBC) Count 16.5 thou/uL (4.8-10.8)
[2017-05-21 05:42] LABS: Anion Gap 15 mmol/L (10-20); BUN (Urea Nitrogen) 16 mg/dL (9.8-20.1); Calc. Creatinine Clearance 32 mL/min (70-130); Calcium 8.7 mg/dL (7.8-10.44); Carbon Dioxide 24 mmol/L (23-31); Chloride 103 mmol/L (98-107); Estimated GFR-MDRD 63; Glucose 84 mg/dL (83-110); Phosphorus 3.4 mg/dL (2.3-4.7); Potassium 5.6 mmol/L (3.5-5.1); Sodium 136 mmol/L (136-145)
[2017-05-21] MEDS ORDERED: Lidocaine Patch Removal 1 EACH TOP SCH (06:00)
[2017-05-21] MEDS: Famotidine/PF 20 mg/2ml Vial SLOW IVP SCH (12:17)
[2017-05-21] MEDS: Levothyroxine Sodium 75 MCG TAB PO SCH (12:18)
[2017-05-21] MEDS: Donepezil HCl 10 MG TAB PO SCH (12:18)
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
--- NOTE | 2017-05-21 19:44 | PRG ---
DATE OF SERVICE: 05/21/2017 REASON FOR CONSULTATION: Dysphagia and malnutrition. SUBJECTIVE: The patient underwent successful EGD with PEG tube placement yesterday, no acute events or problems overnight. Tube feeds were started this morning per tube feed protocol. OBJECTIVE: VITAL SIGNS: Temperature 98.6, pulse 95, blood pressure 110/54, respiratory rate 20 and satting 100% on room air. GENERAL: The patient is lying comfortably in bed in no acute distress. The patient is not alert nor interactive. ABDOMEN: Normoactive bowel sounds, soft, nontender and nondistended. PEG tube noted in the left upp er quadrant with no surrounding skin erythema or mucosal breakdown, no purulence. The external bumpe r was retracted from the skin with approximately 6 cm sewn on the skin. ASSESSMENT AND PLAN: The patient is an 86-year-old female with past medical history of advanced alin ntia of the Alzheimer's type, chronic kidney disease stage 3, hypothyroidism, hyperlipidemia, osteoar thritis, diverticulosis and pancreatic cyst, presenting with worsening mental status/obtundation and malnutrition. 1. Malnutrition. The patient presented with a fairly sudden decline in her mental status prior to a dmission, now being unable to adequately feed herself to maintain oral nutrition. She underwent succ essful Esophagogastroduodenoscopy with PEG placement on 05/20/2017 with the placement of a 20-[place] [employer] PEG tube. Currently, the PEG tube is in the proper position with no immediate sari operative complications. RECOMMENDATIONS: 1. Okay to start tube feeds today and advance as tolerated. 2. Please follow general PEG tube care instructions. We will sign off at this time. Please call wi th any questions.
[2017-05-21] MEDS: cefTRIAXone\\ROCEPHIN 2 GM in Sodium Chloride 0.9% 100 ML IVPB SCH (22:04)
[2017-05-21] MEDS: Loperamide HCl 2 MG CAP PO PRN (23:46)
[2017-05-22] MEDS: Lidocaine 5% Patch TD SCH ×2 (01:00→01:55)
[2017-05-22] MEDS: Donepezil HCl 10 MG TAB PO SCH (08:45)
[2017-05-22] MEDS: Levothyroxine Sodium 75 MCG TAB PO SCH (08:45)
[2017-05-22] MEDS: Famotidine/PF 20 mg/2ml Vial SLOW IVP SCH (08:46)
[2017-05-22 10:43] LABS: #Eosinphils 0.1 thou/uL (0.0-0.7); #Lymphocytes 1.3 thou/uL (1.20-3.40); #Monocytes 1.5 thou/uL (0.11-0.59); #Neutrophils 8.1 thou/uL (1.40-6.50); %Basophils 0.1 % (0.0-1.0); %Lymphocytes 11.6 % (21.0-51.0); %Monocytes 13.2 % (0.0-10.0); %Neutrophils 74.1 % (42.0-75.0); Hemoglobin 10.7 g/dL (12.0-16.0); Mean Corpuscular HGB CONC 31.4 g/dL (32.0-36.0); Mean Corpuscular Hemoglobin 29.8 pg (27.0-31.0); Mean Platelet Volume 10.2 fL (7.4-10.4); Platelet Count 240 thou/uL (130-400); RBC Distribution Width 16.8 % (11.5-14.5)
[2017-05-22 11:01] LABS: Anion Gap 11 mmol/L (10-20); BUN (Urea Nitrogen) 19 mg/dL (9.8-20.1); Calc. Creatinine Clearance 33 mL/min (70-130); Carbon Dioxide 25 mmol/L (23-31); Chloride 104 mmol/L (98-107); Estimated GFR-MDRD 65; Glucose 101 mg/dL (83-110); Phosphorus 3.4 mg/dL (2.3-4.7); Potassium 4.9 mmol/L (3.5-5.1); Sodium 135 mmol/L (136-145)
[2017-05-22] MEDS: Lidocaine Patch Removal 1 EACH TOP SCH (12:02)
[2017-05-22 14:05] VITALS: BMI 17.4
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
[2017-05-22] MEDS ORDERED: Simvastatin 5 MG TAB PO SCH (21:00)
[2017-05-22] MEDS: Famotidine 20 MG TAB PER TUBE SCH (21:35)
[2017-05-23] MEDS: Lidocaine 5% Patch TD SCH (00:41)
[2017-05-23] MEDS: Levothyroxine Sodium 75 MCG TAB PO SCH (08:52)
[2017-05-23] MEDS: Donepezil HCl 10 MG TAB PO SCH (08:52)
[2017-05-23] MEDS: Famotidine 20 MG TAB PER TUBE SCH (08:52)
[2017-05-23] MEDS: Lidocaine Patch Removal 1 EACH TOP SCH (11:51)
--- NOTE | 2017-05-23 12:02 | PDOC.PN ---
- Subjective Encounter Start Date: 05/23/17 Encounter Start Time: 12:00 - Objective Resuscitation Status: Resuscitation Status DNR:Do Not Resuscitate MAR Reviewed: Yes Vital Signs & Weight: Vital Signs (12 hours) Temp Pulse Resp BP BP Pulse Ox 05/23/17 08:00 97.9 F 77 20 115/51 L 92 L 05/23/17 04:30 97.8 F 77 18 106/62 94 L Weight Admit Weight 93 lb 4.8 oz Weight 95 lb 8 oz I&O: 05/22/17 05/23/17 05/24/17 06:59 06:59 06:59 Intake Total 2520 2103 Balance 2519 2103 Result Diagrams: 05/22/17 10:26 05/22/17 10:26 Phys Exam - Physical Examination HEENT: PERRLA Respiratory: no wheezing, no rales, no rhonchi, clear to auscultation bilateral Cardiovascular: RRR, no significant murmur, no rub Gastrointestinal: soft, non-tender, positive bowel sounds Musculoskeletal: no edema Dx/Plan (1) Dysphagia Code(s): R13.10 - DYSPHAGIA, UNSPECIFIED Status: Acute (2) Encephalopathy, metabolic Code(s): G93.41 - METABOLIC ENCEPHALOPATHY Status: Acute Comment: Mild improvement but persists, due to hypernatremia and sepsis, supportive mgmt, serial assessments, CT brain negative (3) Severe protein-calorie malnutrition Code(s): E43 - UNSPECIFIED SEVERE PROTEIN-CALORIE MALNUTRITION Status: Chronic Comment: Started TF's,PEG placed 05/20/17. , monitor caloric intake, (4) Acute hypernatremia Code(s): E87.0 - HYPEROSMOLALITY AND HYPERNATREMIA Status: Resolved Comment : Improved, continue D5W with KCL IVF, serial Na+ monitoring, appears to be resolving (5) Dementia Code(s): F03.90 - UNSPECIFIED DEMENTIA WITHOUT BEHAVIORAL DISTURBANCE Status: Suspected Comment: Supportive mgmt as outlined above, reassess mental status after acute infectious process resolved (6) COPD (chronic obstructive pulmonary disease) Status: Acute - Plan * Hypernatremia- resolved * Dysphagia- likely as a result of advanced dementia- she has had a PEG tube placed * COPD- probable resulting in hypoxemia * Stable for discharge home..
[2017-05-23 12:41] VITALS: BP 113/69; TEMP 98
--- NOTE | 2017-05-23 20:14 | DIS ---
DATE OF ADMISSION: 05/14/2017 DATE OF DISCHARGE: 05/23/2017 PRIMARY CARE PHYSICIAN: Dr. Maxwell Johnston. DISCHARGE DISPOSITION: Home. PRIMARY DISCHARGE DIAGNOSES: 1. Hypernatremia, secondary to dehydration. 2. Severe dehydration, secondary to dysphagia. 3. Severe protein calorie malnutrition. 4. Hypoxemia, likely secondary to chronic obstructive pulmonary disease. 5. Hypothyroidism. 6. Dyslipidemia. 7. Osteoarthritis. 8. History of diverticulosis. DISCHARGE MEDICATIONS: Include, raloxifene 60 mg daily, Namenda 5 mg twice a day, lovastatin 10 mg a t bedtime, Lidoderm patch as needed, and levothyroxine 75 mcg daily. PROCEDURES DONE DURING ADMISSION: The patient had a CT scan of the brain which was negative for any acute intracranial abnormalities. There were some involutional changes and severe chronic ischemic w huyen matter change. The patient also had an EGD and PEG tube placement and the EGD was essentially n ormal. CODE STATUS: DNR. ALLERGIES: No known drug allergies. HOSPITAL COURSE: Ms. Gar is a pleasant 86-year-old female that was brought to the hospital afte r she was found to be lethargic and having a very poor appetite. She has a history of advanced demen tia and it is suspected that this is the reason for the poor oral intake. Her sodium level is 163 on admission. She also had an acute renal failure secondary to dehydration with a creatinine of 2.06 a nd this acute renal failure was likely as a result of prerenal azotemia. This was corrected with IV hydration. Her renal function actually improved back to normal. She has dysphagia likely as a resul t of her advanced dementia causing the hypernatremia and malnutrition. She was seen by Gastroenterol maco and underwent an EGD and PEG tube placement. She tolerated the procedure well and was subsequent ly able to be discharged home with tube feeding as well as home oxygen.
--- NOTE | 2017-05-29 15:08 | EKG ---
Test Reason : AMS Blood Pressure : / mmHG Vent. Rate : 101 BPM Atrial Rate : 101 BPM P-R Int : 156 ms QRS Dur : 068 ms QT Int : 346 ms P-R-T Axes : 076 -65 -30 degrees QTc Int : 448 ms Sinus tachycardia with occasional Premature ventricular complexes Left axis deviation Inferior infarct , age undetermined Abnormal ECG Confirmed by EUGENIO HUNTER D.O. ([id number]), assistant film editor CHAY DESAI ([id number]) on 05/29/2017 3:07:41 PM Referred By: Confirmed By:EUGENIO HUNTER D.O.
== END 2017-05-23 16:01 | disposition home health service (06) | DRG 871 ==
LOC: ERS 18:52 → 2NO 05-14 00:26 → SURG A 05-21 20:24
PROVIDERS: ADMIT Internal Medicine; ATTEND Internal Medicine
PROC: 0DJ08ZZ Inspection of Upper Intestinal Tract, Via Natural or Artificial Opening Endoscopic (ICD-10-PCS; principal; 2017-05-20)
PROC: 0DH63UZ Insertion of Feeding Device into Stomach, Percutaneous Approach (ICD-10-PCS; 2017-05-20)
PROC: 3E0G76Z Introduction of Nutritional Substance into Upper GI, Via Natural or Artificial Opening (ICD-10-PCS; 2017-05-20)
DX: A41.9 Sepsis, unspecified organism (principal); G93.41 Metabolic encephalopathy; E43 Unspecified severe protein-calorie malnutrition; N17.9 Acute kidney failure, unspecified; L89.152 Pressure ulcer of sacral region, stage 2; R13.12 Dysphagia, oropharyngeal phase; E87.0 Hyperosmolality and hypernatremia; G30.9 Alzheimer's disease, unspecified; F02.80 Dementia in other diseases classified elsewhere, unspecified severity, without behavioral disturbance, psychotic disturbance, mood disturbance, and anxiety; E87.2 Acidosis; I24.8 Other forms of acute ischemic heart disease; N39.0 Urinary tract infection, site not specified; Z68.1 Body mass index [BMI] 19.9 or less, adult; R47.01 Aphasia; E87.8 Other disorders of electrolyte and fluid balance, not elsewhere classified; R65.20 Severe sepsis without septic shock; N18.3 Chronic kidney disease, stage 3 (moderate); R15.9 Full incontinence of feces; E03.9 Hypothyroidism, unspecified; E78.5 Hyperlipidemia, unspecified; M19.90 Unspecified osteoarthritis, unspecified site; R32 Unspecified urinary incontinence; Z87.891 Personal history of nicotine dependence; E86.0 Dehydration; K57.90 Diverticulosis of intestine, part unspecified, without perforation or abscess without bleeding; J44.9 Chronic obstructive pulmonary disease, unspecified; R09.02 Hypoxemia; Z66 Do not resuscitate
CPT/HCPCS: 36415; 51701; 70450; 71045; 74018; 80048; 80053; 80202; 81003; 81015; 82553; 83605; 83735; 84100; 84443; 84484; 85007; 85025; 85027; 87040; 87045; 87046; 87324; 87449; 87899; 90471; 90670; 90682; 93005; 94760; 96361; 96365; A4216; A4353; G0008; G0009; G8978-GP-CN; G8979-GP-CL; G8987-GO-CM; G8988-GO-CL; G8996-GN-CM; G8996-GN-CN; G8997-GN-CL; J0696; J2704; J3370; J7050; J7070; Q2036; S0028